=== PATIENT | female | born 1955 | race Caucasian/White ===

== ENCOUNTER 2023-11-12 06:05 | Inpatient (IN) | payer BC ==
[~2023-11-12] VITALS: Ht 160 cm; Wt 51.6 kg
[~2023-11-12 06:05] MED LIST: ACET-1080 PO; ACET300T51 PO; ASPI-378 OR; ATOR10TA PO; CHOL20004 PO; DICL50TA4 PO; DIPH-452 PO; IBUP-1456 PO; IBUP200C14 PO; LIDO1GEL EX; MAGN1TAB34 PO; MULT-1179 PO; MULT-1228 PO; MULT-688 PO; OMEP20TA PO
[2023-11-12] MEDS ORDERED: LIDOCAINE 2% JELLY 11ml (GLYDO) ONE (06:31)
[2023-11-12] MEDS ORDERED: LIDOCAINE W/ EPINEPHRINE 1% 20ML VIAL ONE (06:31)
[2023-11-12] MEDS ORDERED: TRANEXAMIC ACID 20 ML ONE (06:31)
[2023-11-12] MEDS ORDERED: levoFLOXacin 750MG 150 ML IV ONE (07:00)
[2023-11-12] MEDS ORDERED: HYDROmorphone HCL 2 MG/ML VL/or syr ONE ×2 (07:06→11:19)
[2023-11-12] MEDS ORDERED: PROPOFOL 100 ML IV ONE (07:06)
[2023-11-12] MEDS ORDERED: KETAMINE 50mg/ML 1ml syringe ONE (07:06)
[2023-11-12] MEDS ORDERED: fentaNYL CITRATE 100 MCG/2 ML VL ONE ×2 (07:06→07:07)
[2023-11-12] MEDS ORDERED: PHENYLEPHRINE HCL 10 MG/ML VL ONE (07:07)
[2023-11-12] MEDS ORDERED: KETOROLAC TROMETH 30 MG/ML 1ML VIAL ONE (07:07)
[2023-11-12] MEDS ORDERED: ROCURONIUM 10MG/ML 10ML VIAL IV ONE (07:07)
[2023-11-12] MEDS ORDERED: PROPOFOL 10 MG/ML 20 ML IV ONE (07:07)
[2023-11-12] MEDS ORDERED: ONDANSETRON HCL 4 MG/2 ML VIAL ONE (07:07)
[2023-11-12] MEDS ORDERED: ePHEDrine SULFATE 50 MG/ML AMP ONE (07:07)
[2023-11-12] MEDS ORDERED: GLYCOPYRROLATE 0.2 MG/ML 1ML VIAL ONE (07:07)
[2023-11-12] MEDS ORDERED: HYDROCORTISONE SOD SUCC 100 MG/2ML INJ VIAL ONE (07:07)
[2023-11-12] MEDS ORDERED: MIDAZOLAM HCL 2MG/2ML 2ml VIAL (1mg/ml) ONE (07:25)
[2023-11-12] MEDS ORDERED: ceFAZolin 1GM/50ML 50 ML IV ONE (07:39)
[2023-11-12] MEDS ORDERED: ONDANSETRON HCL 4 MG/2 ML VIAL IV PRN (08:00)
[2023-11-12] MEDS ORDERED: MORPHINE SULFATE INJ 2 MG/ml SYRG IV PRN (08:00)
[2023-11-12] MEDS ORDERED: NITROGLYCERIN 0.4 MG SL TAB SL PRN (08:00)
[2023-11-12] MEDS ORDERED: ACETAMINOPHEN 325 MG TAB PO PRN (08:00)
[2023-11-12] MEDS ORDERED: ceFAZolin 1GM VL ONE (10:22)
[2023-11-12 11:16] VITALS: O2SAT 100
[2023-11-12] MEDS: HYDROmorphone HCL 2 MG/ML VL/or syr IV PRN (11:20)
[2023-11-12] MEDS ORDERED: ONDANSETRON HCL 4 MG/2 ML VIAL IV ONE (11:30)
[2023-11-12 12:25] VITALS: BP 128/49; PULSE 113; RESP 20; TEMP 97.8; O2SAT 100
[2023-11-12 12:30] VITALS: O2SAT 94
[2023-11-12] MEDS: CARISOPRODOL 350 MG TAB PO SCH (13:37)
[2023-11-12] MEDS: D5W/SOD CHLO 0.9% 1,000 ML IV SCH (13:37)
[2023-11-12] MEDS: ceFAZolin 1GM/50ML 50 ML IV SCH (15:05)
[2023-11-12] MEDS: CYCLOBENZAPRINE HCL 10 MG TAB PO SCH (15:06)
[2023-11-12] MEDS: DOCUSATE SOD 100 MG CAP PO SCH (15:06)
[2023-11-12] MEDS ORDERED: SUGAMMADEX 200mg/2ml Vial (100MG/ML) IV ONE (15:23)
[2023-11-12 17:00] VITALS: BP 139/61; PULSE 93; RESP 20; TEMP 98.8; O2SAT 100
[2023-11-12] MEDS: MORPHINE SULFATE INJ 2 MG/ml SYRG IV PRN (17:05)
[2023-11-12 20:00] VITALS: RESP 16; O2SAT 97
[2023-11-12] MEDS ORDERED: DexAMETHasone SOD PHOS 10MG/1ML VIAL INJ IV ONE (20:31)
[2023-11-12 22:00] VITALS: BP 138/76; PULSE 100; RESP 16; TEMP 98.4; O2SAT 97
[2023-11-13] VITALS (9 sets, daily range): BP systolic 100–141; BP diastolic 49–67; PULSE 61–92; RESP 16–18; TEMP 97.7–99.2; O2SAT 95–100
[2023-11-13] MEDS: HYDROcodone-ACET 10/325MG TAB PO PRN (03:31)
[2023-11-13 12:31] LABS: Basophils # (auto) 0 10 ^3/uL (0-0.2); Basophils % (auto) 0.1 % (0.0-2.0); Eosinophils # (auto) 0 10 ^3/uL (0-0.8); Eosinophils % (auto) 0.1 % (0.0-7.0); Hematocrit 30.9 % (36.0-46.0); Hemoglobin 10.2 g/dL (12.2-16.2); Lymphocytes # (auto) 1.3 10 ^3/uL (0.4-5.4); Lymphocytes % (auto) 11.5 % (10.0-50.0); Mean Corpuscular Hemoglobin 31.5 pg (28.0-32.0); Mean Corpuscular Hgb Conc. 32.9 g/dL (32.0-36.0); Mean Corpuscular Volume 95.7 fL (80.0-100.0); Monocytes # (auto) 0.6 10 ^3/uL (0-1.3); Neutrophils # (auto) 9.7 10 ^3/uL (1.6-8.6); Neutrophils % (auto) 83.3 % (37.0-80.0); Nucleated Red Blood Cells % 0.1 %; Red Blood Cells 3.23 10^6/uL (4.0-5.20); White Blood Cell 11.7 10^3/uL (4.4-10.8)
[2023-11-13 12:44] LABS: Chloride 96 mmol/L (98-107); Potassium 3.3 mmol/L (3.5-5.1); Sodium 124 mmol/L (136-145)
[2023-11-13 12:45] LABS: Anion Gap 4 (5-15); Carbon Dioxide 24 mmol/L (20-30)
[2023-11-13 12:46] LABS: Calcium 8.2 mg/dL (8.5-10.1)
[2023-11-13 12:50] LABS: Glucose 117 mg/dL (74-106)
[2023-11-13 12:51] LABS: Blood Urea Nitrogen < 5 mg/dL (9-23); Magnesium 1.8 mg/dL (1.6-2.6)
[2023-11-13] MEDS ORDERED: ALEN70TA74 PO (15:39)
[2023-11-13] MEDS ORDERED: LOSA-533 PO (15:39)
[2023-11-13] MEDS ORDERED: FURO20TA3 PO (15:39)
[2023-11-13] MEDS: POTASSIUM EFFERVESENT TAB 25 MEQ PO ONE (20:07)
[2023-11-14] VITALS (8 sets, daily range): BP systolic 104–136; BP diastolic 39–52; PULSE 96–113; RESP 15–20; TEMP 98.1–98.9; O2SAT 95–98
[2023-11-14 07:10] LABS: Anion Gap 4 (5-15); Calcium 8.6 mg/dL (8.5-10.1); Carbon Dioxide 29 mmol/L (20-30); Chloride 100 mmol/L (98-107); Potassium 3.3 mmol/L (3.5-5.1)
[2023-11-14 07:12] LABS: Sodium 133 mmol/L (136-145)
[2023-11-14 07:15] LABS: Glucose 121 mg/dL (74-106)
[2023-11-14 07:17] LABS: BUN/Creatinine Ratio 10.4 (10.0-20.0); Blood Urea Nitrogen < 5 mg/dL (9-23); Magnesium 1.9 mg/dL (1.6-2.6)
[2023-11-14] MEDS: POTASSIUM CHL 20 Meq TABLET PO ONE (11:28)
[2023-11-14] MEDS: TAMSULOSIN HYDROCHLORIDE 0.4 MG CAP PO ONE (18:15)
[2023-11-15] VITALS (10 sets, daily range): BP systolic 83–126; BP diastolic 28–76; PULSE 104–132; RESP 17–20; TEMP 97.4–99.1; O2SAT 97–99
[2023-11-15 07:33] LABS: Chloride 100 mmol/L (98-107); Potassium 3.7 mmol/L (3.5-5.1); Sodium 133 mmol/L (136-145)
[2023-11-15 07:34] LABS: Anion Gap 6 (5-15); Carbon Dioxide 27 mmol/L (20-30); Hematocrit 30.2 % (36.0-46.0); Hemoglobin 10.4 g/dL (12.2-16.2)
[2023-11-15 07:35] LABS: Calcium 8.9 mg/dL (8.7-10.4)
[2023-11-15 07:39] LABS: Glucose 109 mg/dL (74-106)
[2023-11-15 07:40] LABS: BUN/Creatinine Ratio 9.6 (10.0-20.0); Blood Urea Nitrogen 5 mg/dL (9-23)
[2023-11-15] MEDS: TAMSULOSIN HYDROCHLORIDE 0.4 MG CAP PO SCH (09:08)
[2023-11-15] MEDS: SODIUM CHLORIDE 0.9% 500 ML IV ONE (13:53)
[2023-11-15] MEDS: CYCLOBENZAPRINE HCL 10 MG TAB PO SCH (15:56)
[2023-11-16] VITALS (8 sets, daily range): BP systolic 116–134; BP diastolic 44–101; PULSE 67–131; RESP 18–20; TEMP 98–98.8; O2SAT 94–99
[2023-11-16] MEDS: ceFAZolin 1GM/50ML 50 ML IV SCH (00:39)
[2023-11-16 09:13] LABS: Urine Bacteria FEW /hpf (None Seen); Urine Blood Negative /uL (Negative); Urine Clarity Clear (Clear); Urine Color Light-Yellow (Yellow); Urine Protein, UAD Negative (Negative); Urine Specific Gravity 1.008 (1.001-1.035); Urine Urobilinogen Normal (Negative); Urine WBC 1 /hpf (0 - 5); Urine pH 6.5 (5.0-9.0)
[2023-11-16] MEDS ORDERED: DOCU-265 PO (11:24)
[2023-11-16] MEDS ORDERED: METH-1181 PO (11:24)
[2023-11-16] MEDS ORDERED: HYDR-4902 PO (11:24)
== END 2023-11-16 20:32 | disposition home or self-care (01) | DRG 455 ==
LOC: SUR 06:05 → TELE 07:59 → TELE-WESTW 13:17
PROVIDERS: ADMIT Orthopaedic Surgery; ATTEND Internal Medicine
PROC: 0SG1071 Fusion of 2 or more Lumbar Vertebral Joints with Autologous Tissue Substitute, Posterior Approach, Posterior Column, Open Approach (ICD-10-PCS; 2023-11-12)
PROC: 01NB0ZZ Release Lumbar Nerve, Open Approach (ICD-10-PCS; 2023-11-12)
PROC: 00NY0ZZ Release Lumbar Spinal Cord, Open Approach (ICD-10-PCS; 2023-11-12)
PROC: 4A11X4G Monitoring of Peripheral Nervous Electrical Activity, Intraoperative, External Approach (ICD-10-PCS; 2023-11-12)
PROC: 0SG10AJ Fusion of 2 or more Lumbar Vertebral Joints with Interbody Fusion Device, Posterior Approach, Anterior Column, Open Approach (ICD-10-PCS; principal; 2023-11-12 07:33)
DX: M48.062 Spinal stenosis, lumbar region with neurogenic claudication (principal); E78.00 Pure hypercholesterolemia, unspecified; M47.816 Spondylosis without myelopathy or radiculopathy, lumbar region; K21.9 Gastro-esophageal reflux disease without esophagitis; M62.838 Other muscle spasm; E87.6 Hypokalemia; M41.56 Other secondary scoliosis, lumbar region; Z79.1 Long term (current) use of non-steroidal anti-inflammatories (NSAID); Z79.82 Long term (current) use of aspirin; Z79.899 Other long term (current) drug therapy; Z83.3 Family history of diabetes mellitus; Z80.1 Family history of malignant neoplasm of trachea, bronchus and lung; Z82.49 Family history of ischemic heart disease and other diseases of the circulatory system; Z80.3 Family history of malignant neoplasm of breast
CPT/HCPCS: 36415; 72100; 76000; 80048; 81001; 83735; 85014; 85018; 85025; 86850; 86900; 86901; 87086; 97110; 97116; 97163; 97530; G0378; J0690; J1100; J1885; J2250; J2405; J2704; J7042

== ENCOUNTER 2024-09-23 09:38 | Emergency (ER) | payer BC ==
[~2024-09-23] VITALS: Ht 162.6 cm; Wt 48.8 kg
[~2024-09-23 09:38] MED LIST changes: +ALEN70TA74 PO; +DOCU-265 PO; +FURO20TA3 PO; +HYDR-4902 PO; +LOSA-533 PO; +METH-1181 PO
[2024-09-23 09:45] VITALS: BP 161/96; RESP 20; TEMP 98.5; O2SAT 97
[2024-09-23 09:57] VITALS: PULSE 90
--- NOTE | 2024-09-23 10:03 | ECG ---
[facility] Test Date: 2024-09-23 Test Time: 09:57:07 Pat Name: JOHN HORAN Department: ER Room: Gender: F Business Development Officer: GP : [id number] Requested By: NURYS SORIA Order Number: [id number] Reading MD: Lee Ann Measurements Intervals [place] Rate: 90 P: 86 CA: 161 QRS: 82 QRSD: 85 T: 70 QT: 366 QTc: 448 Interpretive Statements Sinus rhythm Biatrial enlargement Borderline right axis deviation RSR' in V1 or V2, probably normal variant Left ventricular hypertrophy Baseline wander in lead(s) I,III,aVL,V1 Electronically Signed On 09-23-2024 17:11:24 PDT by Lee Ann Please click the below link to view image of tracing.
[2024-09-23 14:07] LABS: Urine Bacteria None Seen /hpf (None Seen)
[2024-09-23 14:37] LABS: Urine Blood Negative /uL (Negative); Urine Clarity Clear (Clear); Urine Color Light-Yellow (Yellow); Urine Protein, UAD Negative (Negative); Urine Squamous Epithelial Cell FEW /hpf (<5); Urine Urobilinogen Normal (Negative); Urine WBC 1 /HPF (0-5)
== END 2024-09-23 11:51 | disposition left against medical advice (07) ==
LOC: ER 09:38
DX: R06.02 Shortness of breath (principal); Z53.21 Procedure and treatment not carried out due to patient leaving prior to being seen by health care provider
CPT/HCPCS: 81001; 93005